=== PATIENT | male | born 1990 | race Caucasian/White ===

== ENCOUNTER 2017-07-22 01:45 | Emergency (ER) | payer SELFPAY ==
[2017-07-22] MEDS ORDERED: KETOROLAC TROMETHAMINE 60 MG/2 ML VIAL IM ONE ×2 (02:09→02:14)
[2017-07-22] MEDS ORDERED: PROMETHAZINE HCL 25 MG/ML AMPUL IM ONE (02:09)
--- NOTE | 2017-07-22 02:13 | ERNOTE ---
Headache ER HPI - Narrative Date of Service: 07/22/17 - General Presenting Symptoms: headache, facial pain Time Seen by Provider: 07/22/17 01:59 Source: patient, family - Immun/Allergies/Home Medications Immunizations: IMMUNIZATION HX Immunizations Up to Date No History of Influenza Vaccine No Hx Pneumococcal Vaccination No Allergies/Adverse Reactions: Allergies methylphenidate HCl [From Ritalin] Allergy (Verified 07/22/17 01:57) Home Medications: HOME MEDICATIONS Fluticasone Propionate [Flonase] 1 spray NS DAILY PRN 07/22/17 [Last Taken Unknown] - History of Present Illness Narrative: This is a 27-year-old male who comes to the emergency department complaining of right-sided headache and facial pain. The pain has been present for 2 weeks, he describes it as a throbbing sensation primarily in the right temporal area but also some discomfort in the right maxilla and jaw area. He denies having any recent trauma. He denies having history of similar symptoms. The patient says that he came in this evening because his symptoms got much worse. He saw the emergency department physician a week or 2 ago and was prescribed Flonase. He says that seemed to help with the sinus discomfort but hasn't done anything for the headache. He does have nausea. He is sensitive to sound and to light. Moving his eyes does not cause any significant change in his symptoms. He has no numbness or tingling. Denies any trauma Review of Systems - Review of Systems Constitutional: Present: See HPI EYE: Present: no symptoms reported ENT: Present: no symptoms reported Respiratory: Present: no symptoms reported Cardiology: Present: no symptoms reported Gastrointestinal/Abdominal: Present: no symptoms reported Genitourinary: Present: no symptoms reported Musculoskeletal: Present: no symptoms reported Skin: Present: no symptoms reported Neurological: Present: headache Endocrine: Present: no symptoms reported Hematologic/Lymphatic: Present: no symptoms reported Psych: Present: no symptoms reported All Other Systems: All systems neg except as marked - Patient's Past Medical History Patient History - Medical: No pertinent hx Patient History - Cardiac/Respiratory: No pertinent hx Patient History - Cancer: No Hx of Cancer Patient History - Surgical Procedures: No surgical history Patient History - Other: None - Family History Father Family History - Medical: History Unknown Family History - Cardiac/Respiratory: History Unknown - Social History Living Situations: home Abuse History: No History of abuse Psych History: No pertinent hx Smoking Status: Never smoker Have you smoked in the past 12 months: No Do you dip or chew tobacco: No Alcohol Use: none Drug Use: none - Immunizations Immunizations Up to Date: No Hx Pneumococcal Vaccination: No History of Influenza Vaccine: No Physical Exam - Physical Exam General Appearance: Present: wd/wn, alert, no apparent distress Head Exam: Present: normal inspection, no evidence of injury Eye Exam: Normal inspection: bilateral, PERRL: bilateral, EOMI: bilateral Ears, Nose, Throat: Present: normal ENT inspection, normal pharynx, other Neck: Present: normal inspection, nontender - patient has mild left-sided ptosis Respiratory: Present: no respiratory distress, normal breath sounds Cardiovascular/Chest: Present: regular rate, rhythm, no murmur Extremity Exam: Present: normal inspection, normal range of motion Neurological Exam: Present: alert, oriented, normal mood/affect, no motor/ sensory deficits, other - left-sided ptosis the remainder of the cranial nerves are normal palpation of the right side of the face does not trigger the headache Skin Exam: Present: normal color, warm/dry Lymphatic Exam: Present: no adenopathy ED Progress - Vital Signs Patient's Vital Signs:: I have reviewed the patient's vital signs. Vital Signs: Vital Signs 07/22/17 01:52 Temperature 36.4 C L Pulse Rate 80 Respiratory 14 Rate Blood Pressure 189/119 O2 Sat by Pulse 96 Oximetry - CT/Ultrasound CT/Ultrasound Narrative: CT head: No actue disease - Progress/Reassessment Chief Complaint: Headache Departure Clinical Impression: Headache - Departure Disposition: Home self-care Condition: Stable Instructions: Migraine Headache, [id number] Additional Instructions: As we discussed CAT scan of her head does not show anything abnormal. He did have a brain. There are no tumors. There is no bleeding. I suspect her symptoms are migraine-type headache. Unfortunately this is not something that we treat long-term in the emergency department. The medicines I have given Q should help. He should've a much less of a headache when he wake up. He need to call and establish care with a family doctor. Certainly if you develop fever, loss of vision, numbness or tingling, or any new concerning symptoms she should return to the ER.
[2017-07-22] MEDS ORDERED: PROMETHAZINE HCL 25 MG/ML AMPUL ONE (02:14)
[2017-07-22 03:08] VITALS: BP 153/97
== END 2017-07-22 03:06 | disposition home or self-care (01) ==
LOC: ER 01:45
DX: R51 Headache (principal)

== ENCOUNTER 2017-08-15 23:19 | Emergency (ER) | payer SELFPAY ==
--- NOTE | 2017-08-15 23:59 | ERNOTE ---
Headache ER HPI - General Presenting Symptoms: "migraine" Time Seen by Provider: 08/15/17 23:51 Source: patient Exam Limitations: no limitations - Immun/Allergies/Home Medications Immunizations: IMMUNIZATION HX Immunizations Up to Date No: Unknown History of Influenza Vaccine No Hx Pneumococcal Vaccination No Allergies/Adverse Reactions: Allergies methylphenidate HCl [From Ritalin] Allergy (Verified 07/22/17 01:57) - Pain Pain Score: 9 - History of Present Illness Narrative: Pt states he had a migraine all night but this morning after getting some sleep it went away. This evening it recurred and he has not been able to relieve it at home Timing of Headache: abrupt Quality: Present: throbbing Severity Maximum: Present: severe Severity-Currently: Present: severe Headache frequency: Present: frequent headaches Modifying Factors - (Worsens): Reports: exposure to light Associated Symptoms: Reports: facial pain - on the right. Denies: fever/chills , nausea, vomiting, nasal congestion, nasal drainage, vision changes Prior Treament: Reports: similar symptoms before Review of Systems - Review of Systems Constitutional: Absent: recent illness, fever, chills EYE: Absent: vision changes ENT: Absent: nose congestion, nasal drainage Respiratory: Absent: cough Cardiology: Absent: chest pain Gastrointestinal/Abdominal: Absent: nausea Genitourinary: Present: no symptoms reported Musculoskeletal: Present: no symptoms reported Skin: Present: no symptoms reported Neurological: Present: See HPI Endocrine: Present: no symptoms reported Hematologic/Lymphatic: Present: no symptoms reported Psych: Present: no symptoms reported - Patient's Past Medical History Patient History - Medical: No pertinent hx Patient History - Cardiac/Respiratory: No pertinent hx Patient History - Cancer: No Hx of Cancer Patient History - Surgical Procedures: No surgical history Patient History - Other: None - Family History Mother Family History - Cardiac/Respiratory: CHF Family History - Cancer: Cervical Father Family History - Medical: History Unknown Family History - Cardiac/Respiratory: History Unknown Family History - Cancer: No pertinent family hx - Social History Living Situations: parents Abuse History: No History of abuse Psych History: No pertinent hx Smoking Status: Never smoker Have you smoked in the past 12 months: No Do you dip or chew tobacco: No Alcohol Use: none Drug Use: none - Immunizations Immunizations Up to Date: No - Unknown Hx Pneumococcal Vaccination: No History of Influenza Vaccine: No Physical Exam - Physical Exam General Appearance: Present: wd/wn, alert, mild distress Head Exam: Present: normal inspection, no evidence of injury Ears, Nose, Throat: Present: normal ENT inspection Neck: Present: normal inspection, nontender Respiratory: Present: no respiratory distress, no accessory muscle use Back Exam: Present: normal inspection, normal range of motion, no vertebral tenderness Neurological Exam: Present: alert, oriented, normal mood/affect, no motor/ sensory deficits Skin Exam: Present: normal color, warm/dry Lymphatic Exam: Present: no adenopathy ED Progress - Vital Signs Patient's Vital Signs:: I have reviewed the patient's vital signs. Vital Signs: Vital Signs 08/15/17 23:33 Temperature 36.4 C L Pulse Rate 78 Respiratory 18 Rate O2 Sat by Pulse 97 Oximetry - Progress/Reassessment Chief Complaint: Headache Progress:: Improved - pain down to 03/10 Departure Clinical Impression: Headache Qualifiers: Headache type: other vascular headache Qualified Code(s): G44.1 - Vascular headache, not elsewhere classified - Departure Disposition: Home Follow Up Needed Condition: Good Instructions: Migraine Headache, [id number] Additional Instructions: See your primary care physician for further treatment if you continue to have headaches.
[2017-08-16] MEDS ORDERED: PROMETHAZINE HCL 25 MG/ML AMPUL IM ONE (00:02)
[2017-08-16] MEDS ORDERED: KETOROLAC TROMETHAMINE 60 MG/2 ML VIAL IM ONE ×2 (00:02→00:10)
[2017-08-16] MEDS ORDERED: PROMETHAZINE HCL 25 MG/ML AMPUL ONE (00:10)
[2017-08-16 02:11] VITALS: BP 180/94
== END 2017-08-16 01:12 | disposition home or self-care (01) ==
LOC: ER 23:19
DX: G44.1 Vascular headache, not elsewhere classified (principal)